=== PATIENT | male | born 1945 | race Caucasian/White ===

== ENCOUNTER → 2017-06-12 | Outpatient (CLI) | payer MEDICARE, OTHER ==
[~2017-06-12] MED LIST: ANALGESIC325 M1 PO; ATROVENT 0.06%15 ML NS; ELAVIL10 MG PO; FLOMAX0.4 M1 PO; HYDROCODONE/APAP; MOTRIN800 MG PO; NIASPAN1000 MG PO; NITROGLYCERIN0.4 MG SL; PLAVIX75 MG PO; PRILOSEC20 MG PO; SINEMET PO; SYNTHROID137 MCG PO; VALIUM5 MG PO; [UNRECOGNIZED DRUG - OTHER]
== END | disposition home or self-care (01) ==
LOC: CDC 11:33
DX: G56.02 Carpal tunnel syndrome, left upper limb (principal); R94.31 Abnormal electrocardiogram [ECG] [EKG]
CPT/HCPCS: 93000